=== PATIENT | female | born 1975 | race Asian ===

== ENCOUNTER 2023-01-14 10:03 | Outpatient (CLI) | payer OTHER | END 2023-01-14 22:09 | disposition home or self-care (01) | LOC: MRI 10:03 | PROVIDERS: ATTEND Student in an Organized Health Care Education/Training Program | DX: M54.16 Radiculopathy, lumbar region (principal); M48.062 Spinal stenosis, lumbar region with neurogenic claudication ==

== ENCOUNTER 2023-04-23 11:07 | Outpatient (CLI) | payer OTHER | END 2023-04-23 19:37 | disposition home or self-care (01) | LOC: MRI 11:07 | PROVIDERS: ATTEND Student in an Organized Health Care Education/Training Program | DX: M54.12 Radiculopathy, cervical region (principal); M47.812 Spondylosis without myelopathy or radiculopathy, cervical region ==